=== PATIENT | female | born 1960 | race Caucasian/White ===

== ENCOUNTER 2019-02-01 13:30 | Emergency (ER) | payer BC, OTHER ==
[~2019-02-01] VITALS: Ht 167.6 cm; Wt 117.7 kg
[2019-02-01] MEDS ORDERED: ketorolac trometh inj. 60 MG/2 ML VIAL IM ONE (14:40)
[2019-02-01] MEDS ORDERED: acetaminophen 325mg tablet PO ONE (14:40)
[2019-02-01 14:51] VITALS: BP 125/66
== END 2019-02-01 15:07 | disposition home or self-care (01) ==
LOC: ER 13:31
DX: S91.012A Laceration without foreign body, left ankle, initial encounter (principal); S60.212A Contusion of left wrist, initial encounter; S80.211A Abrasion, right knee, initial encounter; M25.511 Pain in right shoulder; E78.00 Pure hypercholesterolemia, unspecified; I10 Essential (primary) hypertension; E11.9 Type 2 diabetes mellitus without complications; Z86.73 Personal history of transient ischemic attack (TIA), and cerebral infarction without residual deficits; Z88.5 Allergy status to narcotic agent; W18.09XA Striking against other object with subsequent fall, initial encounter; Y93.89 Activity, other specified; Y92.89 Other specified places as the place of occurrence of the external cause; Y99.9 Unspecified external cause status
CPT/HCPCS: 73030; 73090; 73564; 96372; 99284; J1885